=== PATIENT | female | born 1970 | race Caucasian/White ===

== ENCOUNTER → 2017-10-13 | Outpatient (CLI) | payer OTHER ==
[2017-10-13 11:48] LABS: Anisocytosis Slight; Basophils % (A) 0 %; Eosinophils # (A) 0.2 k/uL (0-0.7); Eosinophils % (A) 3 %; HCT 41.2 % (34.0-46.0); HGB 12.1 gm/dL (11.4-16.0); Hypochromasia Marked; Lymphocytes # (A) 1.8 k/uL (1.0-4.8); Lymphocytes % (A) 29 %; MCH 27.1 pg (25.0-35.0); MCHC 29.4 g/dL (31.0-37.0); MCV 92.1 fL (80.0-100.0); Mean Platelet Volume 9.8; Monocytes # (A) 0.5 k/uL (0-1.0); Monocytes % (A) 8 %; Neutrophils # (A) 3.6 k/uL (1.3-7.7); Neutrophils % (A) 58 %; Platelet Count 193 k/uL (150-450); RBC 4.48 m/uL (3.80-5.40); RDW 16.4 % (11.5-15.5); WBC 6.3 k/uL (3.8-10.6)
== END | disposition home or self-care (01) ==
LOC: LABPAT 10:48
PROVIDERS: ATTEND Surgery Plastic and Reconstructive Surgery
DX: Z01.812 Encounter for preprocedural laboratory examination (principal)
CPT/HCPCS: 36415; 85025

== ENCOUNTER 2017-10-15 12:00 | Inpatient (IN) | payer OTHER ==
--- NOTE | 2017-10-15 08:05 | P.GSHP ---
History of Present Illness H&P Date: 10/15/17 CHIEF COMPLAINT: Paraesophageal hiatal hernia with gastroesophageal reflux disease. HISTORY OF PRESENT ILLNESS: The patient is a 47-year-old female who presents with recurrent GERD following previous fundoplasty. She has completed an esophageal manometry including upper endoscopy workup. Now she presents for surgical intervention. PAST MEDICAL HISTORY: Please see list. PAST SURGICAL HISTORY: Please see list. MEDICATIONS: Please see list. ALLERGIES: Please see list. SOCIAL HISTORY: No illicit drug use FAMILY HISTORY: No reports of Crohn disease or ulcerative colitis. REVIEW OF ORGAN SYSTEMS: CONSTITUTIONAL: No reports of fevers or chills. GI: Denies any blood in stools or constipation. PHYSICAL EXAM: VITAL SIGNS: Stable GENERAL: Well-developed pleasant and in no acute distress. HEENT: No scleral icterus. Extraocular movements grossly intact. Moist buccal mucosa. NECK: Supple without lymphadenopathy. CHEST: Unlabored respirations. Equal bilateral excursions. CARDIOVASCULAR: Regular rate and rhythm. Distal 2+ pulses. ABDOMEN: Soft, nondistended. No peritoneal signs. MUSCULOSKELETAL: No clubbing, cyanosis, or edema. ASSESSMENT: 1. Severe gastroesophageal reflux disease. PLAN: 1. Recommend proceeding with a robotic revision of paraesophageal hiatal hernia with possible mesh. 2. Benefits and risks of surgical intervention was discussed including possibility of open technique. 3. Inpatient hospitalization recommended of 2 nights or less. 4. DVT prophylaxis. 5. Antibiotic prophylaxis. Past Medical History Past Medical History: Asthma, GERD/Reflux Additional Past Medical History / Comment(s): hiatal hernia, History of Any Multi-Drug Resistant Organisms: None Reported Past Surgical History: Back Surgery, Cholecystectomy, Hernia Repair Additional Past Surgical History / Comment(s): back surgery x2, Bety fundoplasty Past Anesthesia/Blood Transfusion Reactions: Motion Sickness, Postoperative Nausea & Vomiting (PONV) Smoking Status: Current every day smoker - Past Family History Mother Family Medical History: No Reported History Medications and Allergies Home Medications Medication Instructions Recorded Confirmed Type Albuterol Inhaler [Ventolin Hfa 1 - 2 puff INHALATION BID 07/03/17 10/09/17 History Inhaler] Metoclopramide [Reglan] 10 mg PO DAILY 07/03/17 10/09/17 History Ibuprofen [Motrin Ib] 200 mg PO DIRECTED PRN 10/09/17 10/09/17 History Multivitamins, Thera [Multivitamin 1 tab PO DAILY 10/09/17 10/09/17 History (formulary)] Allergies Allergy/AdvReac Type Severity Reaction Status Date / Time No Known Allergies Allergy Verified 10/09/17 09:52
[~2017-10-15 12:00] MED LIST changes: +HEPARIN SODIUM,PORCINE 5,000 UNIT/ML 1 ML VIAL SQ ONE; +HYDROmorphone 0.5 MG/0.5 ML SYRINGE IVP PRN; -LACTATED RINGERS 1,000 ML IV SCH; -LIDOCAINE 1% 20 ML VIAL (10MG/ML) FOR IV START INTRADERMA PRN; +PANTOPRAZOLE 40 MG/10 ML VIAL IV STA; +SCOPOLAMINE 1.5MG/72HR PATCH TRANSDERM STA; +ceFAZolin IN SWFI 2 GM/20 ML SYRINGE IVP ONE; +fentaNYL (PF) 50 MCG/ML 2 ML AMP IV PRN
[2017-10-15] MEDS ORDERED: ONDANSETRON 4 MG/2 ML VIAL IVP ONE (13:34)
[2017-10-15] MEDS ORDERED: DEXAMETHASONE SOD PHOSPHATE 10 MG/ML 1 ML VIAL IV ONE (13:34)
[2017-10-15] MEDS: LACTATED RINGERS 1,000 ML IV SCH ×2 (14:05→22:39)
[2017-10-15] MEDS ORDERED: LIDOCAINE 1% 20 ML VIAL (10MG/ML) FOR IV START INTRADERMA ONE (14:06)
[2017-10-15] MEDS ORDERED: BUPIVACAINE (PF) 0.25% 30 ML VIAL SQ ONE (14:40)
[2017-10-15] MEDS ORDERED: NEOSTIGMINE 1 MG/ML 10 ML VIAL ONE (14:41)
[2017-10-15] MEDS ORDERED: fentaNYL (PF) 50 MCG/ML 2 ML AMP ONE (14:41)
[2017-10-15] MEDS ORDERED: PROPOFOL 10 MG/ML 20 ML VIAL IV ONE (14:41)
[2017-10-15] MEDS ORDERED: SUCCINYLCHOLINE CHLORIDE 100 MG/5 ML SYR IV ONE (14:41)
[2017-10-15] MEDS ORDERED: HYDROmorphone (PF) 1 MG/ML ONE (14:41)
[2017-10-15] MEDS ORDERED: LIDOCAINE 1% INJ 10MG/ML (20 ML MDV) ONE (14:41)
[2017-10-15] MEDS ORDERED: GLYCOPYRROLATE 0.2 MG/ML 2 ML VIAL ONE (14:41)
[2017-10-15] MEDS ORDERED: ROCURONIUM BROMIDE 10 MG/ML 10 ML VIAL IV ONE (14:41)
[2017-10-15] MEDS ORDERED: MIDAZOLAM 2 MG/2 ML VIAL ONE (14:41)
[2017-10-15] MEDS ORDERED: BUPIVACAINE (PF) 0.5% 30 ML VIAL SQ ONE (15:03)
[2017-10-15] MEDS ORDERED: LACTATED RINGERS 1,000 ML IV ONE (18:19)
[2017-10-15] MEDS ORDERED: NALOXONE 0.4 MG/ML 1 ML VIAL IV PRN (19:10)
[2017-10-15] MEDS ORDERED: ONDANSETRON 4 MG/2 ML VIAL IVP PRN (19:10)
[2017-10-15] MEDS ORDERED: diphenhydrAMINE 50 MG/ML 1 ML VIAL IVP PRN (19:10)
--- NOTE | 2017-10-15 19:10 | P.PCN ---
Date of Procedure: 10/15/17 Preoperative Diagnosis: Epigastric abdominal pain, history of recurrent hiatal hernia, gastroesophageal reflux disease Postoperative Diagnosis: Same, intra-abdominal adhesions Procedure(s) Performed: Robotic-assisted takedown of fundoplasty with lysis of adhesions over 2-1/2 hours, repair of incarcerated recurrent paraesophageal hiatal hernia 6 x 6 cm with mesh, intraoperative EGD Anesthesia: GETA, local Surgeon: Leonor Babb Estimated Blood Loss (ml): 40 Pathology: none sent Condition: stable Disposition: floor Operative Findings: 1. Severe adhesions from previous previous Bety fundoplasty 2. Intraoperative EGD demonstrates no mucosal defects within the esophagus or stomach. 3. Negative leak test. 4. Complete takedown and reduction of incarcerated paraesophageal hiatal hernia 6 x 6 cm 5. Extensive dissection into the mediastinum with intra-abdominal esophageal length over 3 cm
[2017-10-15] MEDS ORDERED: DEXAMETHASONE SOD PHOSPHATE 4 MG/ML 1 ML VIAL IV PRN (19:13)
[2017-10-16] MEDS: 0.9% NACL WITH KCL 20 MEQ/L 1,000 ML IV SCH ×2 (00:14→06:51)
[2017-10-16] MEDS: LACTATED RINGERS 1,000 ML IV SCH ×2 (00:19→12:36)
[2017-10-16] MEDS: HYDROcodone/APAP 15 ML SOLUTION PO PRN ×3 (00:26→15:47)
[2017-10-16] MEDS: AMPICILLIN-SULBACTAM 3 GM in SODIUM CHLORIDE 0.9% 100 ML IVPB SCH ×2 (00:27→06:51)
[2017-10-16] MEDS: SIMETHICONE 40 MG/0.6 ML DROPS 2,000 MG/30 ML BOTTLE PO SCH ×3 (00:32→12:32)
[2017-10-16] MEDS: METOCLOPRAMIDE 5 MG/ML 2 ML VIAL IVP SCH ×3 (00:32→12:31)
[2017-10-16] MEDS: HYOSCYAMINE ORAL DROPS 1.875 MG/15 ML BOTTLE PO SCH ×3 (00:34→12:31)
[2017-10-16 00:47] VITALS: BMI 33.3
[2017-10-16] MEDS: ALBUTEROL NEBULIZED 2.5 MG/3 ML INHALATION SCH ×2 (07:20→11:20)
[2017-10-16 07:26] LABS: Anisocytosis Slight; Basophils % (A) 0 %; Eosinophils % (A) 0 %; HCT 37.5 % (34.0-46.0); HGB 11.4 gm/dL (11.4-16.0); Hypochromasia Moderate; Lymphocytes # (A) 0.8 k/uL (1.0-4.8); Lymphocytes % (A) 7 %; MCH 27.4 pg (25.0-35.0); MCHC 30.5 g/dL (31.0-37.0); Monocytes # (A) 0.6 k/uL (0-1.0); Monocytes % (A) 6 %; Neutrophils # (A) 9.4 k/uL (1.3-7.7); Neutrophils % (A) 86 %; Platelet Count 197 k/uL (150-450); RBC 4.17 m/uL (3.80-5.40); RDW 16.2 % (11.5-15.5); WBC 10.9 k/uL (3.8-10.6)
[2017-10-16 07:34] LABS: Anion Gap 8 mmol/L; Blood Urea Nitrogen 12 mg/dL (7-17); Calcium 8.7 mg/dL (8.4-10.2); Carbon Dioxide 21 mmol/L (22-30); Chloride 112 mmol/L (98-107); Phosphorus 3.7 mg/dL (2.5-4.5); Sodium 141 mmol/L (137-145)
[2017-10-16] MEDS ORDERED: 0.9% NACL WITH KCL 20 MEQ/L 1,000 ML IV SCH (08:00)
[2017-10-16 08:42] VITALS: BP 147/78; RESP 16; TEMP 97.7
[2017-10-16] MEDS ORDERED: PANTOPRAZOLE 40 MG/10 ML VIAL IV SCH (09:00)
[2017-10-16] MEDS ORDERED: ENOXAPARIN 40 MG/0.4 ML SYRINGE SQ SCH (09:00)
--- NOTE | 2017-10-16 09:50 | FL ---
EXAMINATION TYPE: FL UGI DATE OF EXAM: 10/16/2017 COMPARISON: NONE HISTORY: Postop hiatal hernia repair TECHNIQUE: A single contrast UGI study is performed. FINDINGS: The patient is status post Bety fundoplication. Patient was given 50 cc Omni 350 to drink . Attention directed to the gastroesophageal junction. 3 5 seconds fluoroscopy time, 2 images obtained There is no extravasation of contrast. Postop change noted at the gastroesophageal junction. No obstr uction to flow. IMPRESSION: No evident complication. Postop change.
[2017-10-16 11:59] VITALS: PULSE 78
--- NOTE | 2017-10-16 12:33 | P.PN ---
Subjective Progress Note Date: 10/16/17 47-year-old female seen and examined. Patient reports having gas discomfort belching. States has been up ambulating in the hallway . Medication effective for pain control surgical incision sites dressings dry Patient is postop Robotic-assisted takedown of fundoplasty with lysis of adhesions over 2-1/2 hours, repair of incarcerated recurrent paraesophageal hiatal hernia 6 x 6 cm with mesh, intraoperative EGD done on October 15 Done for reoccurring esophageal reflux symptoms Objective - Vital Signs Vital signs: Vital Signs Temp 97.7 F 10/16/17 07:00 Pulse 78 10/16/17 11:58 Resp 16 10/16/17 07:00 BP 147/78 10/16/17 07:00 Pulse Ox 98 10/16/17 07:21 Intake & Output 10/15/17 10/16/17 10/16/17 18:59 06:59 18:59 Intake Total 1800 Output Total 90 50 1000 Balance 1710 -50 -1000 Weight 91 kg 91 kg Intake: IV 1800 Output: Urine 50 50 1000 Estimated Blood Loss 40 Other: Voiding Method Toilet # Voids 0 1 - Exam Physical exam 47-year-old female sitting up in bed appears in no acute distress states did ambulate in the hallway did pass gas belching Lungs adequate air movement bilaterally nasal cannula 2 L sats are documented 98 % no cough noted Heart S1-S2 audible irregular heart rate in the 70s Abdomen soft obese non-distended surgical tenderness appropriate bowel tones present urinating no difficulty tolerating diet no nausea vomiting surgical incision site dressings dry Extremities no edema noted - Labs CBC & Chem 7: 10/16/17 06:35 10/16/17 06:35 Labs: Abnormal Lab Results - Last 24 Hours (Table) 10/16/17 10/16/17 Range/Units 06:35 06:35 WBC 10.9 H (3.8-10.6) k/uL MCHC 30.5 L (31.0-37.0) g/dL RDW 16.2 H (11.5-15.5) % Neutrophils # 9.4 H (1.3-7.7) k/uL Lymphocytes # 0.8 L (1.0-4.8) k/uL Chloride 112 H (98-107) mmol/L Carbon Dioxide 21 L (22-30) mmol/L Assessment and Plan Assessment: Impression Present on admission. Peraesophageal hiatal hernia with gastroesophageal reflux disease symptomatic Status post October 15 robotic-assisted takedown of fundoplasty with lysis of adhesions, repair of incarcerated recurrent paraesophageal hiatal hernia with mesh Plan Continue postop surgical care Bariatric clear liquid diet PT OT eval DVT and GI prophylaxis Further recommendations pending The above impression and plan of care have been discussed and directed by signing physician. Nancy Quinn nurse practitioner acting as scribe for signing physician.
--- NOTE | 2017-10-16 13:57 | P.PN ---
Progress Note - Text Progress Note Date: 10/16/17 To whom it may concern: Yolanda Montano is under my surgical care. She may not return to work until cleared by me. She has strict weight lifting restrictions of no lifting more than 4 pounds in 4 weeks. Restrictions will be in place through November 09. Please contact us if questions. Regards, Leonor Babb MD
--- NOTE | 2017-10-16 14:19 | P.DS ---
Providers Date of admission: 10/15/17 18:21 Expected date of discharge: 10/16/17 Attending physician: Leonor Babb Primary care physician: Stated None Hospital Course: patient is a 47-year-old female who presents with recurrent GERD following previous fundoplasty. has completed an esophageal manometry including upper endoscopy workup. Now she presents for surgical intervention. Done on October 15 Robotic-assisted takedown of fundoplasty with lysis of adhesions over 2-1/2 hours, repair of incarcerated recurrent paraesophageal hiatal hernia 6 x 6 cm with mesh, intraoperative EGD Was indicated to the patient she could not return to work until cleared by Dr. Babb. He should had strict weightlifting restrictions not able to lift more than 4 pounds in 4 weeks restrictions will be in place through November 09 Impression Present on admission. Peraesophageal hiatal hernia with gastroesophageal reflux disease symptomatic Status post October 15 robotic-assisted takedown of fundoplasty with lysis of adhesions, repair of incarcerated recurrent paraesophageal hiatal hernia with mesh The above impression and plan of care have been discussed and directed by signing physician. Nancy Quinn nurse practitioner acting as scribe for signing physician. Plan - Discharge Summary Discharge Rx Participant: No New Discharge Prescriptions: New Bisacodyl [Dulcolax] 5 mg PO DAILY PRN #10 tablet. PRN Reason: Constipation HYDROcodone/APAP [Thaxton Elixir 7.5-325Mg/15Ml] 15 ml PO Q4HR PRN #480 ml PRN Reason: Pain Ondansetron Odt [Zofran Odt] 4 mg PO Q8HR PRN #9 tab PRN Reason: Nausea Simethicone 40 mg/0.6 ml Drops [Mylicon Drops] 40 mg PO PCHS PRN #30 ml PRN Reason: Gas Continue Albuterol Inhaler [Ventolin Hfa Inhaler] 1 - 2 puff INHALATION RT-BID Metoclopramide [Reglan] 10 mg PO DAILY Discontinued Multivitamins, Thera [Multivitamin (formulary)] 1 tab PO DAILY Ibuprofen [Motrin Ib] 200 mg PO Q6H PRN PRN Reason: Pain Discharge Medication List Albuterol Inhaler [Ventolin Hfa Inhaler] 1 - 2 puff INHALATION RT-BID 07/03/17 [ History] Metoclopramide [Reglan] 10 mg PO DAILY 07/03/17 [History] Bisacodyl [Dulcolax] 5 mg PO DAILY PRN #10 tablet. 10/16/17 [Rx] HYDROcodone/APAP [Thaxton Elixir 7.5-325Mg/15Ml] 15 ml PO Q4HR PRN #480 ml [Rx] Ondansetron Odt [Zofran Odt] 4 mg PO Q8HR PRN #9 tab 10/16/17 [Rx] Simethicone 40 mg/0.6 ml Drops [Mylicon Drops] 40 mg PO PCHS PRN #30 ml [Rx] Follow up Appointment(s)/Referral(s): Leonor Babb MD [STAFF PHYSICIAN] - 10/20/17 ([place]) Patient Instructions/Handouts: How to Stop Smoking (DC), Adult Laparoscopic Bety Fundoplication (DC) Activity/Diet/Wound Care/Special Instructions: No lifting over 4 pounds in 4 weeks. No bathtub soaks. May shower. No carbonated beverages. No straws. No smoking. Liquid diet only including protein shakes such as Muscle Milk, 20 - 30 grams per serving. Please crush medications. Discharge Disposition: HOME SELF-CARE
--- NOTE | 2017-10-18 13:56 | P.OP ---
Date of Procedure: 10/15/17 Description of Procedure: SURGEON: CHARLES HAYDEN MD ADAPTED PHYSICAL EDUCATION TEACHER: 1. Jammie Bryant 2. Kristen Shell. PREOPERATIVE DIAGNOSES: 1. Gastroesophageal reflux disease. 2. Paraesophageal hiatal hernia, midline, recurrent. 3. Intractable nausea and vomiting 4. Previous fundoplasty. 5. Epigastric abdominal pain. 6. Dysphagia. 7. History of tobacco use. POSTOPERATIVE DIAGNOSES: 1. Gastroesophageal reflux disease. 2. Paraesophageal hiatal hernia, midline, recurrent. 3. Intractable nausea and vomiting 4. Previous fundoplasty. 5. Epigastric abdominal pain. 6. Dysphagia. 7. History of tobacco use. OPERATION: 1. Robotic-assisted da Aron Xi laparoscopic takedown of fundoplasty with lysis of adhesions over 2-1/2 hours 2. Robotic-assisted da Aron Xi laparoscopic reduction and repair of recurrent incarcerated paraesophageal hiatal hernia, 6 x 6 cm, with [address] Biopatch A 8 x 8 cm. 3. Intraoperative esophagogastroduodenoscopy ANESTHESIA: General with local anesthetic. ESTIMATED BLOOD LOSS: 40 mL SPECIMENS REMOVED: None. COMPLICATIONS: None. Operative Findings: 1. Severe adhesions from previous previous Bety fundoplasty 2. Intraoperative EGD demonstrates no mucosal defects within the esophagus or stomach. 3. Negative leak test. 4. Complete takedown and reduction of incarcerated paraesophageal hiatal hernia 6 x 6 cm 5. Extensive dissection into the mediastinum with intra-abdominal esophageal length over 3 cm. INDICATIONS: The patient is a 47-year-old fmale who presents with previous fundoplasty including regurgitation, gastroesophageal reflux and a symptomatic diaphragmatic hiatal hernia. Preoperative workup including upper endoscopy demonstrated a Hill grade 4 lower esophageal valve. She completed an esophageal manometry. Given the severity of her symptoms, particularly of her symptomatic diaphragmatic hiatal hernia, [facility] had elected for surgical intervention. Benefits and risks including bleeding, infection, recurrence, dysphagia, injury to the lung, need for further surgery was described at length. Informed consent was obtained. DESCRIPTION: The patient was brought into the operating room and placed in supine position. Preoperatively she had received heparin subcutaneously for DVT prophylaxis. After general induction, the abdomen was prepped and draped in standard sterile fashion. The patient had previously voided prior to coming to the operating room. Ioban draping was placed along the abdomen. A timeout protocol was confirmed with the surgical team, for which the patient's name, procedure to be performed including DVT prophylaxis with bilateral SCDs, and preoperative antibiotics were also confirmed. A robotic da Aron Xi system was prepped and primed. At 12 cm from the xiphoid to just below the umbilicus, proposed port sites were marked with indelible marker along the left axillary line, left mid-clavicular line with each ports were marked 10 cm from each other. A 5 mm 0 degrees laparoscopic trocar entry was performed along the left upper quadrant. The abdomen was insufflated to 15 mmHg pressure she tolerated well. Diagnostic laparoscopy demonstrated no injury to bowel, viscera, or mesentery. The gallbladder was unremarkable. The liver surface was unremarkable. No injury had occurred to the small bowel or viscera. Adhesions were found along the anterior abdominal wall. Next, one 8 mm robotic port was placed along the right upper abdomen. An 8-mm port was were placed along the left lateral abdominal wall. The camera 8-mm port was maintained along the epigastrium via the hernia defect. Another 12 mm port was placed along the left upper abdominal wall after exchanging the 5 mm port. Please note that the ports were placed at least 20 cm away from the target anatomy. Care was taken to check that each robotic arm were safely away from collision with the bed or the patient. At the epigastrium, a median sized David liver retractor was placed under direct visualization with the [employer] Estate Planning Director placed over the right shoulder of the patient. The additional third robotic arm was placed along the left aspect of the patient. The patient was repositioned in reverse Trendelenburg position at 14-degrees after lowering the bed. The robot was docked above the left side of the patient. Using a grasper for arm 3, a grasper for arm 1, including vessel sealer for arm 2, the robotic system was docked and primed as described. Instruments were interchanged by the public relations assistant. I had sat at the console. The gastrohepatic ligament was obliterated from previous scarring. Next, the phrenoesophageal ligament was mobilized and the distal esophagus was mobilized circumferentially. Moderate scarring from her previous fundoplasty was identified and carefully dissected free. An incarcerated hernia with a large lipoma was found along the mediastinum. As a result, deep dissection well into the mediastinum was needed to free the entire esophagus. The left and right crura was identified. A moderate sized midline large hiatal hernia and sac was found incarcerated into the mediastinum. Significant mobilization of the distal to mid esophagus into the mediastinum was performed. Care was taken to avoid any gastrotomy to the incarcerated upper pole of the stomach. Extended dissection occurred for at least another 2.5 hours as the stomach was densely adherent to the left diaphragm. The measured defect was consistent with 6 cm axial length and 6 cm in width. After extensive dissection, the distal esophagus at least 3 cm was brought into the abdominal cavity. Once the hiatus and crura was dissected, 2-0 VLOC suture was placed as a running suture to re-approximate the diaphragmatic hiatus posteriorly. To buttress the repair, a Green [address] Biopatch A was prepared along the back table and cut in a mclean-hole fashion as to reinforce the repair as an underlay. The mesh was placed along the crural repair and tagged using horizontal mattress sutures using 2-0 VLOC. I went to the head of the bed to perform intraoperative esophagogastroduodenoscopy. I went to the head of the bed to perform intraoperative esophagogastroduodenoscopy. An Olympus gastroscope was passed through posterior oropharynx, where the GE junction was found distal to the diaphragmatic hiatus. The intra-abdominal esophageal length obtained during the case was over 2 cm. The stomach was entered. The duodenum was unremarkable. Retroflexion of the scope confirmed a Hill grade 1 lower esophageal valve. The stomach had been desufflated. No evidence of leaks were found either of the mucosal defects of the esophagus or stomach. This concluded the endoscopic portion of the case. The robot was undocked from the patient. I re-scrubbed into the case. All instruments and pneumoperitoneum were evacuated from the abdominal cavity. Incisions were reapproximated using 4-0 Monocryl in an interrupted subcuticular fashion. The 12-mm port site fascial defect was less than 8 mm in size. Dermabond was applied to the skin. Local anesthetic was infiltrated in all wounds for postop analgesia. Multiple intra-abdominal films were obtained. At the end of the procedure, needle, sponge, and instrument count was verified correct by the assembler surgical garment. The patient had tolerated the procedure well and was taken to the postanesthesia unit in stable condition.
== END 2017-10-16 15:59 | disposition home or self-care (01) | DRG 327 ==
LOC: 3SUR 18:21
PROVIDERS: ADMIT Surgery Plastic and Reconstructive Surgery; ATTEND Surgery Plastic and Reconstructive Surgery
PROC: 0BUT4JZ Supplement Diaphragm with Synthetic Substitute, Percutaneous Endoscopic Approach (ICD-10-PCS; 2017-10-15)
PROC: 0DN44ZZ Release Esophagogastric Junction, Percutaneous Endoscopic Approach (ICD-10-PCS; 2017-10-15)
PROC: 0DN Gastrointestinal System, Release (ICD-10-PCS; 2017-10-15)
PROC: 0DN Gastrointestinal System, Release (ICD-10-PCS; 2017-10-15)
PROC: 0DN64ZZ Release Stomach, Percutaneous Endoscopic Approach (ICD-10-PCS; 2017-10-15)
PROC: 8E0W4CZ Robotic Assisted Procedure of Trunk Region, Percutaneous Endoscopic Approach (ICD-10-PCS; 2017-10-15)
PROC: 0DJ08ZZ Inspection of Upper Intestinal Tract, Via Natural or Artificial Opening Endoscopic (ICD-10-PCS; 2017-10-15)
PROC: 0DV44ZZ Restriction of Esophagogastric Junction, Percutaneous Endoscopic Approach (ICD-10-PCS; principal; 2017-10-15 14:00)
DX: K21.9 Gastro-esophageal reflux disease without esophagitis (principal); K44.0 Diaphragmatic hernia with obstruction, without gangrene; K66.0 Peritoneal adhesions (postprocedural) (postinfection); D17.4 Benign lipomatous neoplasm of intrathoracic organs; R13.10 Dysphagia, unspecified; F17.200 Nicotine dependence, unspecified, uncomplicated; J45.909 Unspecified asthma, uncomplicated; Z90.49 Acquired absence of other specified parts of digestive tract; Z79.899 Other long term (current) drug therapy
CPT/HCPCS: 74240; 80051; 81025; 82310; 82565; 83735; 84100; 84520; 85025; 86850; 86900; 86901; 94640; 94760; 94762

== ENCOUNTER → 2017-10-15 | Day surgery (SDC) | payer OTHER ==
[2017-07-03 11:21] VITALS: BMI 26.6
--- NOTE | 2017-07-08 08:03 | P.GSHP ---
History of Present Illness H&P Date: 07/08/17 CHIEF COMPLAINT: GERD HISTORY OF PRESENT ILLNESS: The patient is a 47-year-old female who presents reports gastroesophageal reflux disease. Upper endoscopy was offered for further evaluation and management. PAST MEDICAL HISTORY: Please see list. PAST SURGICAL HISTORY: Please see list. MEDICATIONS: Please see list. ALLERGIES: Please see list. SOCIAL HISTORY: No illicit drug use FAMILY HISTORY: No reports of Crohn disease or ulcerative colitis. REVIEW OF ORGAN SYSTEMS: CONSTITUTIONAL: No reports of fevers or chills. GI: Denies any blood in stools or constipation. PHYSICAL EXAM: VITAL SIGNS: Stable GENERAL: Well-developed and pleasant in no acute distress. HEENT: No scleral icterus. Extraocular movements grossly intact. Moist buccal mucosa. NECK: Supple without lymphadenopathy. CHEST: Unlabored respirations. Equal bilateral excursions. CARDIOVASCULAR: Regular rate and rhythm. Distal 2+ pulses. ABDOMEN: Soft, nondistended. MUSCULOSKELETAL: No clubbing, cyanosis, or edema. ASSESSMENT: 1. Gastroesophageal reflux disease PLAN: 1. Recommend proceeding with an upper endoscopy Past Medical History Past Medical History: Asthma History of Any Multi-Drug Resistant Organisms: None Reported Past Surgical History: Back Surgery, Cholecystectomy, Hernia Repair Additional Past Surgical History / Comment(s): back sx x 2. EGD Past Anesthesia/Blood Transfusion Reactions: Motion Sickness, Postoperative Nausea & Vomiting (PONV) Smoking Status: Current every day smoker - Past Family History Mother Family Medical History: No Reported History Medications and Allergies Home Medications Medication Instructions Recorded Confirmed Type Albuterol Inhaler [Ventolin Hfa 1 - 2 puff INHALATION BID 07/03/17 07/03/17 History Inhaler] Metoclopramide [Reglan] 10 mg PO DAILY 07/03/17 07/03/17 History Allergies Allergy/AdvReac Type Severity Reaction Status Date / Time No Known Allergies Allergy Verified 07/03/17 11:16
--- NOTE | 2017-07-08 21:16 | P.PN ---
Progress Note - Text Progress Note Date: 07/08/17 Patient did not show for her procedure
[~2017-10-15] MED LIST: LACTATED RINGERS 1,000 ML IV SCH; LIDOCAINE 1% 20 ML VIAL (10MG/ML) FOR IV START INTRADERMA PRN
== END ==
LOC: ORWHC2ENDO 12:12
PROVIDERS: ATTEND Surgery Plastic and Reconstructive Surgery
DX: K21.9 Gastro-esophageal reflux disease without esophagitis (principal); Z53.8 Procedure and treatment not carried out for other reasons

== ENCOUNTER → 2018-06-17 | Outpatient (CLI) | payer BC ==
--- NOTE | 2018-06-21 11:40 | MR ---
EXAMINATION TYPE: MR lumbar spine wo/w con DATE OF EXAM: 06/17/2018 COMPARISON: Prior lumbar MRI 03/12/2014 HISTORY: Spinal stenosis / Lumbago w/sciatica. Back right hip and leg pain TECHNIQUE: Multiplanar, multisequence images of the lumbar spine were acquired utilizing [address] gadolinium contrast. L1-L2: Normal disc appearance without desiccation. No herniation, protrusion or disc bulging. No ca nal stenosis is present. Foramina are patent bilaterally. L2-L3: No evident disc herniation. There is facet arthropathy causing posterior lateral mass effect o n the thecal sac. No significant foraminal encroachment or central stenosis. L3-L4: Posterior broad-based disc bulge somewhat eccentric towards the left causes some mild anterior mass effect on the thecal sac. Hypertrophic change at the facets causes some posterior lateral mass effect on the thecal sac which is progressed somewhat in the interval, synovial cyst is suspected cau sing posterior mass effect on the thecal sac resulting in mild to moderate central canal stenosis. Pe ripheral enhancement is noted following contrast administration central intermediate signal on T1-hugo ghted sequences. Bilateral foraminal encroachment may progressed in the interval and likely contribut ed by the facet arthropathy. L4-L5: Facet arthropathy change causes some posterior lateral mass effect on the thecal sac right gre ater than left as on prior, trefoil appearance of the thecal sac is present. No evident disc herniati on. Listhesis contributes somewhat to cause some mild foraminal narrowing. L5-S1: Facet arthropathy changes present. No evident spinal stenosis. No evident disc herniation. Brianne ral foramina are stable in appearance Lumbar segments are intact. No paraspinal masses are identified. Conus medullaris has a normal appe arance. Minimal anterolisthesis grade 1 L4-5, L5-S1 as on prior. Loss of disc height signal again not ed at L5-S1 with increased signal at the posterior aspect of the disc compatible with possible annula r tear. T2 hyperintense signal again noted in the right ilium is likely postoperative. Laminectomy ch ezra present on the left at L4 and L3, L5 as on prior. Enhancement of granulation tissue is present p osterior to the lower lumbar spine consistent with patient's operative changes. Lumbar vertebral bodi es show preserved height. There is mild multilevel spondylosis with endplate discogenic marrow signal change. IMPRESSION: Degenerative disc disease, progression of the facet arthropathy especially at L3-4 resulting in spina l stenosis, synovial cyst is suspected posteriorly. Postop changes.
== END | disposition home or self-care (01) ==
LOC: RADMRIMAIN 10:34
PROVIDERS: ATTEND Nurse Practitioner Family
DX: M48.061 Spinal stenosis, lumbar region without neurogenic claudication (principal); M51.16 Intervertebral disc disorders with radiculopathy, lumbar region; M46.86 Other specified inflammatory spondylopathies, lumbar region; G89.29 Other chronic pain; M54.5 Low back pain; Z98.890 Other specified postprocedural states; Z98.1 Arthrodesis status
CPT/HCPCS: 72158; A9585